=== PATIENT | female | born 1965 | race Asian ===

== ENCOUNTER 2017-01-25 15:17 | Emergency (ER) | payer MEDICARE, OTHER ==
[~2017-01-25] VITALS: Ht 152.4 cm; Wt 50.9 kg
[~2017-01-25 15:17] MED LIST: HYDR-3240 PO; LEVO150T PO; METH5TAB6 PO; POTA1SOL PO
[2017-01-25] MEDS ORDERED: MORPHINE SULFATE 4 MG/ML, 1ML IVPush PRN (15:30)
[2017-01-25] MEDS ORDERED: ONDANSETRON 2MG/ML, 2ML IVPush ONE (15:30)
[2017-01-25] MEDS ORDERED: SODIUM CHLORIDE 0.9% 1,000ML IVBOLUS ONE (15:30)
[2017-01-25 15:56] LABS: HEMATOCRIT 47.1 % (34.6-47.8); HEMOGLOBIN 15.8 g/dL (11.7-16.4); WHITE BLOOD COUNT 8.9 x10^3/uL (3.4-10)
[2017-01-25] MEDS ORDERED: MORPHINE SULFATE 4 MG/ML, 1ML ONE (15:58)
[2017-01-25] MEDS ORDERED: ONDANSETRON 2MG/ML, 2ML ONE (15:59)
[2017-01-25 16:01] LABS: ASPARTATE AMINO TRANSFERASE 20 U/L (15-37); BLOOD UREA NITROGEN 16 mg/dL (7-18)
[2017-01-25 16:11] LABS: PATH.CAST-FLAG NOT PRESENT; SPERM-FLAG NOT PRESENT; SRC-FLAG NOT PRESENT; XTAL-FLAG NOT PRESENT; YLC-FLAG NOT PRESENT
[2017-01-25 17:47] VITALS: BP 126/55
== END 2017-01-25 17:50 | disposition home or self-care (01) ==
LOC: ED 16:23
DX: N30.00 Acute cystitis without hematuria (principal); R10.13 Epigastric pain; M79.1 Myalgia; Z85.850 Personal history of malignant neoplasm of thyroid
CPT/HCPCS: 36415; 76700; 80053; 81001; 83690; 85025; 87086; 96360; 96361; 99285; J7030

== ENCOUNTER 2017-02-07 09:10 | Emergency (ER) | payer MEDICARE ==
[~2017-02-07] VITALS: Ht 152.4 cm; Wt 51.0 kg
[2017-02-07] MEDS ORDERED: ONDA4TAB7 PO (09:35)
[2017-02-07] MEDS ORDERED: LANS30CA PO (09:35)
[2017-02-07] MEDS ORDERED: FAMO20TA7 PO (09:35)
[2017-02-07] MEDS ORDERED: NITR100C PO (09:35)
[2017-02-07 09:54] LABS: HEMATOCRIT 43.9 % (34.6-47.8); HEMOGLOBIN 14.6 g/dL (11.7-16.4); WHITE BLOOD COUNT 8.2 x10^3/uL (3.4-10)
[2017-02-07] MEDS ORDERED: SODIUM CHLORIDE FLUSH 10ML SYR IVF ONE (10:00)
[2017-02-07 10:06] LABS: BLOOD UREA NITROGEN 8 mg/dL (7-18)
[2017-02-07 10:11] LABS: PATH.CAST-FLAG NOT PRESENT; SPERM-FLAG NOT PRESENT; SRC-FLAG NOT PRESENT; XTAL-FLAG NOT PRESENT; YLC-FLAG NOT PRESENT
[2017-02-07 10:11] LABS: ASPARTATE AMINO TRANSFERASE 20 U/L (15-37)
[2017-02-07 11:41] VITALS: BP 138/86
== END 2017-02-07 11:43 | disposition home or self-care (01) ==
LOC: ED 10:29
DX: R10.32 Left lower quadrant pain (principal); Z85.850 Personal history of malignant neoplasm of thyroid; E89.0 Postprocedural hypothyroidism
CPT/HCPCS: 36415; 76770; 80053; 81001; 83690; 84703; 85025; 99285

== ENCOUNTER → 2017-08-31 | Outpatient (CLI) | payer MEDICARE, MEDICAID ==
[~2017-08-31] MED LIST changes: +FAMO20TA7 PO; +LANS30CA PO; +NITR100C PO; +ONDA4TAB7 PO; -POTA1SOL PO; +POTA1SOL4 PO
== END | disposition home or self-care (01) ==
LOC: RAD 12:13
PROVIDERS: ATTEND Nurse Practitioner Family
DX: M19.012 Primary osteoarthritis, left shoulder (principal)

== ENCOUNTER 2019-03-11 13:49 | Outpatient (CLI) | payer MEDICARE | END 2019-03-11 23:59 | disposition home or self-care (01) | LOC: CFH 13:49 | PROVIDERS: ATTEND Nurse Practitioner Family | DX: Z12.31 Encounter for screening mammogram for malignant neoplasm of breast (principal); N64.89 Other specified disorders of breast | CPT/HCPCS: 77063; 77067 ==